=== PATIENT | female | born 1945 | race Caucasian/White ===

== ENCOUNTER 2021-02-09 12:27 | Outpatient (CLI) | payer MEDICARE | END 2021-02-09 12:28 | disposition home or self-care (01) | LOC: CSHMAMMO 12:27 | DX: Z12.31 Encounter for screening mammogram for malignant neoplasm of breast (principal) | CPT/HCPCS: 77063; 77067 ==

== ENCOUNTER → 2022-06-26 13:04 | Outpatient (CLI) | payer MEDICARE, BC | END | disposition home or self-care (01) | LOC: CSHMAMMO 13:04 | DX: Z12.31 Encounter for screening mammogram for malignant neoplasm of breast (principal) | CPT/HCPCS: 77063; 77067 ==